=== PATIENT | female | born 1955 | race Two or more races ===

== ENCOUNTER → 2017-06-22 | Outpatient (CLI) | payer BC | END | disposition home or self-care (01) | LOC: MRI 15:00 | DX: M51.37 Other intervertebral disc degeneration, lumbosacral region (principal) | CPT/HCPCS: 72148 ==

== ENCOUNTER → 2017-06-26 | Outpatient (CLI) | payer BC ==
[2017-06-26] MEDS: IV RINGERS,LACTATED 1000ML 1,000 ML IV ×2 (13:10→14:05)
[2017-06-26] MEDS: IV RINGERS,LACTATED 500ML 1,000 ML IV (14:06)
== END | disposition home or self-care (01) ==
LOC: OPS 12:34
DX: E86.0 Dehydration (principal); R42 Dizziness and giddiness
CPT/HCPCS: 96360; 96361; J7120

== ENCOUNTER → 2018-12-06 | Outpatient (CLI) | payer BC ==
[2017-06-26 14:13] VITALS: BP 137/66
[~2018-12-06] MED LIST: AMLO5TAB10 PO; ASPI-482 PO; LOSA-73 PO; MECL25TA3 PO; MELO15TA23 PO; METF500T16 PO
--- NOTE | 2018-12-06 13:41 | KCIC ---
MRI of the brain without contrast 12/06/2018 Clinical History: Dizziness migraine-like headaches. Blurred vision. Bilateral tinnitus. Numbness and memory loss. Technique: Unenhanced T1-weighted sagittal and axial, T2-weighted axial and coronal and FLAIR, gradient echo and diffusion-weighted axial images of the brain were obtained. Findings: No previous imaging studies are available for comparison. There is mild generalized parenchymal atrophy. Patchy, confluent and multiple small focal areas of increased signal intensity are seen within the periventricular and subcortical white matter of both cerebral hemispheres on the FLAIR and T2-weighted images consistent most likely with areas of small vessel ischemic disease. No acute parenchymal abnormality is seen. No extra-axial fluid collection is seen. There is no MRI evidence of acute ischemia/infarction. Mild mucosal thickening in seen scattered throughout the paranasal sinuses. There are small bilateral mastoid effusions. Normal flow voids are seen within the major vascular structures surrounding the brain parenchyma. The orbits are within normal limits. The IACs are within normal limits. Impression: No acute parenchymal abnormality is seen. Electronically signed by: Arnoldo Meyer MD (12/06/2018 1:38 PM) [id number]
== END | disposition home or self-care (01) ==
LOC: KCIC MRI 09:44
PROVIDERS: ATTEND Psychiatry & Neurology Neurology with Special Qualifications in Child Neurology
DX: G43.909 Migraine, unspecified, not intractable, without status migrainosus (principal); R42 Dizziness and giddiness; H53.8 Other visual disturbances; H93.13 Tinnitus, bilateral; R20.0 Anesthesia of skin; R41.3 Other amnesia
CPT/HCPCS: 70551